=== PATIENT | male | born 1960 | race Caucasian/White ===

== ENCOUNTER 2023-02-01 01:21 | Emergency (ER) | payer MEDICAID ==
[~2023-02-01] VITALS: Ht 165.1 cm; Wt 65.0 kg
[2023-02-01 01:30] VITALS: O2SAT 98
[2023-02-01] MEDS ORDERED: METOCLOPRAMIDE HCL 10MG/2ML VIAL IV ONE (01:30)
[2023-02-01 01:51] LABS: BASOPHILS % 0.4 % (0.0-2.0); EOSINOPHILS % 0.5 % (0.0-5.0); HEMATOCRIT. 37.6 % (42.0-52.0); HEMOGLOBIN. 12.4 g/dL (14.0-18.0); LYMPHOCYTES % 18.8 % (20.0-50.0); MEAN CORPUSCULAR HGB CONC 33.1 g/dL (31.0-37.0); MEAN CORPUSCULAR VOLUME 96.8 fL (80.0-94.0); MONOCYTES % 10.1 % (2.0-8.0); NEUTROPHILS % 70.2 % (40.0-76.0); PLATELET 229 x1000/uL (130-400); RED BLOOD CELL COUNT 3.88 mill/uL (4.7-6.1); RED CELL DISTRIBUTION WIDTH 14.5 % (11.6-14.6); WHITE BLOOD COUNT 9.1 x1000/uL (4.5-11.0)
[2023-02-01 02:00] LABS: INR 1.8; PROTHROMBIN TIME 18.4 sec (9.6-11.0)
[2023-02-01 02:06] LABS: ALANINE AMINOTRANSFERASE 183 IU/L (10-49); ALBUMIN 2.2 g/dL (3.2-4.8); ASPARTATE AMINOTRANSFERASE 430 IU/L (<34); BILIRUBIN TOTAL 3.1 mg/dL (0.1-1.0); CARBON DIOXIDE 26 mEq/L (21-32); CHLORIDE 94 mEq/L (98-107); CREATININE 3.1 mg/dL (0.6-1.3); GLUCOSE 122 mg/dL (70-105); PHOSPHORUS 5.1 mg/dL (2.5-4.9); POTASSIUM 3.3 mEq/L (3.5-5.1); PROTEIN TOTAL 7.7 g/dL (6.0-8.3); SODIUM 131 mEq/L (136-145); UREA NITROGEN BLOOD 39 mg/dL (9-23)
[2023-02-01 02:13] LABS: ETHANOL BLOOD < 10 mg/dL (<10)
[2023-02-01 03:00] VITALS: TEMP 98.5
[2023-02-01] MEDS ORDERED: SODIUM CHLORIDE 0.9% 1,000 ML IV ONE (03:15)
[2023-02-01 03:40] LABS: CLARITY URINE TURBID (CLEAR); COLOR URINE DARK YELLOW (YELLOW); GLUCOSE URINE NEGATIVE (NEGATIVE); KETONES URINE NEGATIVE (NEGATIVE); LEUKOCYTE ESTERASE URINE TRACE (NEGATIVE); NITRITE URINE NEGATIVE (NEGATIVE); OCCULT BLOOD URINE TRACE (NEGATIVE); PROTEIN URINE 2+ (NEGATIVE); SPECIFIC GRAVITY URINE 1.018 (1.005-1.030)
[2023-02-01 04:01] LABS: *AMPHETAMINES SCREEN URINE NEGATIVE (NEGATIVE); *BARBITURATES SCREEN URINE NEGATIVE (NEGATIVE); *BENZODIAZEPINES SCREEN URINE NEGATIVE (NEGATIVE); *COCAINE SCREEN URINE NEGATIVE (NEGATIVE); CANNABINOID URINE SCREEN NEGATIVE (NEGATIVE); ECSTASY MDMA SCREEN URINE NEGATIVE (NEGATIVE); METHADONE URINE SCREEN Neg (NEGATIVE); OPIATES URINE SCREEN NEGATIVE (NEGATIVE); PHENCYCLIDINE URINE SCREEN NEGATIVE (NEGATIVE)
[2023-02-01] MEDS ORDERED: MAGNESIUM 1 G PREMIX 100 ML IV NR ×2 (04:15→07:21)
[2023-02-01 05:42] LABS: RBC URINE 0-2 /hpf (0-2)
[2023-02-01 05:43] LABS: SQUAMOUS EPITHELIAL CELL URINE FEW /lpf (RARE/1+)
[2023-02-01 05:45] LABS: BACTERIA URINE 1+
[2023-02-01 05:46] LABS: HYALINE CASTS URINE 0-5 /lpf
[2023-02-01 07:00] VITALS: BP 139/76; PULSE 109; RESP 18
== END 2023-02-01 08:13 | disposition left against medical advice (07) ==
LOC: ER 01:36 → EDBEDREQ 04:17 → EDBEDREQTM 04:17 → ER 08:13 → CANBEDREQ 02-03 22:40
DX: N17.9 Acute kidney failure, unspecified (principal); E87.6 Hypokalemia; K74.60 Unspecified cirrhosis of liver; E87.1 Hypo-osmolality and hyponatremia; E83.42 Hypomagnesemia; E87.8 Other disorders of electrolyte and fluid balance, not elsewhere classified; E86.0 Dehydration; G44.209 Tension-type headache, unspecified, not intractable
CPT/HCPCS: 80053; 80305; 81003; 80320; 83690; 83735; 84100; 85025; 85610; 86850; 86900; 86901; 36415; 96361; 96374; 99283; J2765; G0480